=== PATIENT | female | born 1980 | race Caucasian/White ===

== ENCOUNTER → 2017-03-28 | Outpatient (CLI) | payer OTHER ==
[~2017-03-28] MED LIST: ACHD5005 PO; BUTA-234 PO; CEPH-38 PO; DCS100C PO; FRS325T PO; HUM100VI SQ; IBP600T1 PO; INSASP10V SQ; INSU100VTC SQ; KETO-22 PO; KETO10TA77 PO; LEVO500T69 PO; OXC5T PO; OXYC-12 PO; PHEN-566 PO; PREN1TAB39 PO; PREN1TAB71 PO; PRM25T PO
--- NOTE | 2017-03-28 14:57 | Diagnostic Imaging Report ---
Three views of the left ankle. INDICATION: Left ankle pain. FINDINGS: There is no fracture, dislocation, or radiopaque foreign body. Ankle mortise is normal in configuration. IMPRESSION: Unremarkable exam. Dictated by: Dictated on workstation # [id number]
== END ==
LOC: RAD 11:05
PROVIDERS: ATTEND Nurse Practitioner Family
DX: M25.572 Pain in left ankle and joints of left foot (principal)
CPT/HCPCS: 73610

== ENCOUNTER → 2019-07-16 | Outpatient (REF) ==
[~2019-07-16] MED LIST changes: +ATOR20TA66; +CITA10TA7; +METH-313 PO
--- NOTE | 2019-07-16 13:42 | Diagnostic Imaging Report ---
INDICATION: Fall. Injury. Pain. COMPARISON: None. FINDINGS: Three views of the right hand were obtained and show no fractures, dislocations, or other acute bony abnormalities. Joint spaces are well maintained throughout. The soft tissues appear unremarkable. No radiopaque foreign bodies are identified. IMPRESSION: Unremarkable radiographic exam of the right hand. Dictated by: Dictated on workstation # [id number]
== END | disposition home or self-care (01) ==
LOC: OCC 13:27 → MERGE 13:27
PROVIDERS: ATTEND Nurse Practitioner Family
CPT/HCPCS: 73130

== ENCOUNTER 2019-07-25 16:08 | Emergency (ER) | payer OTHER ==
[~2019-07-25] VITALS: Ht 155 cm; Wt 75.0 kg
[~2019-07-25 16:08] MED LIST changes: -ATOR20TA66; -CITA10TA7; -METH-313 PO
[2019-07-25] MEDS ORDERED: ATOR20TA66 (16:15)
[2019-07-25] MEDS ORDERED: CITA10TA7 (16:15)
--- NOTE | 2019-07-25 16:18 | ED Back Pain ---
General Chief Complaint: Back Problems Stated Complaint: UPPER BACK PAIN Nursing Triage Note: Reports back pain that is worse with movement and breathing, also having pain in chest with swallowing Nursing Sepsis Screen: No Definite Risk Source of Information: Patient, Family Exam Limitations: No Limitations History of Present Illness Date Seen by Provider: Jul 25, 2019 Time Seen by Provider: 16:16 Initial Comments To ER with reports of mid upper back pain at the upper level of the scapula that she awakened with this morning. No known injury, she felt fine when she went to bed last night. No fevers or chills or cough or shortness of breath but she has pain with any breathing especially deep breathing and the pain increases with swallowing. Again this is the mid upper back and it seems to radiate through to the anterior chest especially with swallowing. She is able to swallow with just painful. Location: Lumbar Spine Timing/Duration: 1 Week Severity: Moderate Pain/Injury Location: Neck (lower neck) Radiation: Other Associated Symptoms: denies symptoms Allergies and Home Medications Allergies Coded Allergies: Sulfa (Sulfonamide Antibiotics) (Verified Allergy, Unknown, 11/11/14) Patient Home Medication List Home Medication List Reviewed: Yes Review of Systems Constitutional: see HPI EENTM: see HPI Respiratory: no symptoms reported Cardiovascular: no symptoms reported Genitourinary: no symptoms reported Musculoskeletal: no symptoms reported Skin: no symptoms reported Psychiatric/Neurological: No Symptoms Reported Past [id number]-[id number] Hx Patient Social History Alcohol Use: Denies Use Recreational Drug Use: No Smoking Status: Never a Smoker Recent Foreign Travel: No Contact w/Someone Who Travel: No Recent Infectious Disease Expo: No Recent Hopitalizations: No Immunizations Up To Date Tetanus Booster (TDap): Less than 5yrs PED Vaccines UTD: Yes Past Medical History Surgeries: Yes (IUD removal under general anesthesia, wisdom teeth removal) Gallbladder Respiratory: Yes (allergy induced) Asthma Cardiac: Yes High Cholesterol Neurological: Yes (febrile seizure x1 at age 4) Reproductive Disorders: No Female Reproductive Disorders: Denies Sexually Transmitted Disease: No HIV/AIDS: No Genitourinary: No Kidney Stones Gastrointestinal: No Musculoskeletal: No Endocrine: Yes ( induced DM) Diabetes, Insulin dep HEENT: No Loss of Vision: Denies Hearing Impairment: Denies Cancer: No Psychosocial: No Depression Integumentary: No Blood Disorders: No Adverse Reaction/Blood Tranf: No Family Medical History Alcoholism 19 FATHER MATERNAL GRANDMA MATERNAL GRANDPA Arthritis 19 MOTHER BREAST MATERNAL GRANDMA Cardiovascular disease MATERNAL GRANDPA PATERNAL GRANDPA Diabetes mellitus 19 MOTHER (50 YRS) FH: lung cancer 19 MOTHER Headache disorder 19 FATHER Hypercholesterolemia 19 MOTHER Hypertension 19 MOTHER Myocardial infarction MATERNAL GRANDPA PATERNAL GRANDPA Neoplasm PATERNAL GRANDPA Respiratory disorder 19 FATHER Thyroid disease 19 MOTHER No Family History of: AIDS Abdominal aortic aneurysm Bacon's disease Alzheimer's disease Aphasia Asthma Cancer of mouth Cataracts Colon cancer Completed stroke Congenital disease Congenital heart disease Coronary thrombosis Cystic fibrosis Deafness or hearing loss Dementia Drug abuse Dysphasia Fibrocystic disease of breast Gastroenteritis Glaucoma Infertility Kidney disease Not obtainable due to adoption Osteoporosis Parkinson's disease Prostate cancer Psychosocial problem Seizure disorder Severe allergy Tuberculosis Visual disorder Physical Exam Vital Signs Vital Signs - First Documented 07/25/19 16:12 Temp 36.8 Pulse 95 Resp 18 B/P (MAP) 140/89 (106) Pulse Ox 98 Capillary Refill : Less Than 3 Seconds Height, Weight, BMI Height: 5'1.00" Weight: 136lbs. 4.0oz. 61.283293mh; 31.00 BMI Method:Stated General Appearance: No Apparent Distress, WD/WN HEENT: PERRL/EOMI, TMs Normal Cardiovascular: Regular Rate, Rhythm, Normal Peripheral Pulses Respiratory: No Accessory Muscle Use, No Respiratory Distress Gastrointestinal: Normal Bowel Sounds, Non Tender, Soft Extremity: Normal Capillary Refill, Normal Inspection Neurologic/Psychiatric: Alert, Oriented x3 Skin: Normal Color, Warm/Dry Progress/Results/Core Measures Results/Orders My Orders Orders - GREGORIO BARAHONA APRN Antacid Suspension (Mylanta Suspension (07/25/19 16:30) Lidocaine 2% Viscous 15 Ml (Xylocaine Vi (07/25/19 16:30) Ketorolac Injection (Toradol Injection) (07/25/19 16:30) Orphenadrine Injection (Norflex Injectio (07/25/19 16:30) Ct Chest Wo (07/25/19 16:24) Medications Given in ED Current Medications Medications Dose Ordered Sig/Catina Route Start Time Stop Time Status Last Admin Dose Admin Al Hydrox/Mg Hydrox/Simethicone 30 ml ONCE ONCE PO 07/25/19 16:30 07/25/19 16:31 DC 07/25/19 17:00 30 ML Ketorolac Tromethamine 60 mg ONCE ONCE IM 07/25/19 16:30 07/25/19 16:31 DC 07/25/19 17:01 60 MG Lidocaine HCl 10 ml ONCE ONCE PO 07/25/19 16:30 07/25/19 16:31 DC 07/25/19 17:00 10 ML Orphenadrine Citrate 60 mg ONCE ONCE IM 07/25/19 16:30 07/25/19 16:31 DC 07/25/19 17:00 60 MG Vital Signs/I&O 07/25/19 16:12 Temp 36.8 Pulse 95 Resp 18 B/P (MAP) 140/89 (106) Pulse Ox 98 Blood Pressure Mean: 106 POS Departure Impression Primary Impression: Thoracic back pain Qualified Codes: M54.6 - Pain in thoracic spine Disposition: 01 HOME, SELF-CARE Condition: Stable Departure-Patient Inst. Decision time for Depature: 17:20 Referrals: ARYA NAQVI MD (PCP/Family) Primary Care Physician Patient Instructions: Upper Back Pain Add. Discharge Instructions: 1. Anti-inflammatories such as naproxen or ibuprofen and muscle relaxers as directed. Return to ER for any concerns Scripts Methocarbamol (Robaxin-750) 750 Mg Tablet 750 MG PO Q4H PRN for PAIN-MODERATE, #20 TAB Prov: GREGORIO BARAHONA APRN 07/25/19 GREGORIO BARAHONA APRN Jul 25, 2019 16:18 POS
[2019-07-25] MEDS ORDERED: ANTACID SUSP 30 ML UDC (MYLANTA) PO ONE (16:30)
[2019-07-25] MEDS ORDERED: KETOROLAC 60 MG/2 ML VIAL IM ONE (16:30)
[2019-07-25] MEDS ORDERED: ORPHENADRINE 60 MG/2 ML (NORFLEX) AMP IM ONE (16:30)
[2019-07-25] MEDS ORDERED: LIDOCAINE 2% VISCOUS 15 ML UDC PO ONE (16:30)
--- NOTE | 2019-07-25 17:16 | Diagnostic Imaging Report ---
EXAMINATION: CT Chest without contrast. TECHNIQUE: Multiple contiguous axial images were obtained through the chest without the use of intravenous contrast. All CT scans use one or more of the following dose optimizing techniques: automated exposure control, MA and/or KvP adjustment based on a patient size and exam type, or iterative reconstruction. HISTORY: Difficulty breathing. COMPARISON: None available. FINDINGS: The lungs are clear without edema or pneumonia. No pleural effusion or pneumothorax. No suspicious nodules. Heart size is normal. No pericardial effusion. Aorta is normal in caliber. There is no axillary or supraclavicular lymphadenopathy. There is no mediastinal lymphadenopathy. Limited views of the upper abdomen reveal cholecystectomy clips. There are no suspicious osseous lesions. IMPRESSION: 1. No acute abnormality in the chest. Dictated by: Dictated on workstation # [id number]
[2019-07-25] MEDS ORDERED: METH-313 PO ×2 (17:25→17:31)
[2019-07-25 17:27] VITALS: BP 140/89
== END 2019-07-25 17:27 | disposition home or self-care (01) ==
LOC: EDUNIT# 16:08 → ER 16:09
DX: M54.6 Pain in thoracic spine (principal); E11.9 Type 2 diabetes mellitus without complications; J45.909 Unspecified asthma, uncomplicated; F32.9 Major depressive disorder, single episode, unspecified; E78.00 Pure hypercholesterolemia, unspecified; Z87.442 Personal history of urinary calculi; Z88.2 Allergy status to sulfonamides; Z82.49 Family history of ischemic heart disease and other diseases of the circulatory system; Z80.1 Family history of malignant neoplasm of trachea, bronchus and lung
CPT/HCPCS: 71250; 96372

== ENCOUNTER → 2022-07-25 | Outpatient (CLI) | payer BC, OTHER ==
[~2022-07-25] MED LIST changes: +ATOR20TA66; +CITA10TA9; +METH-313 PO
--- NOTE | 2022-07-25 13:18 | Diagnostic Imaging Report ---
INDICATION: Routine screening. COMPARISON: No prior mammograms are available for comparison. This is a baseline study. TECHNIQUE: 2D and 3D bilateral screening mammography was performed with CAD. FINDINGS: Both breasts are heterogeneously dense, limiting the sensitivity of mammography. No mass or malignant-appearing microcalcifications are seen. The axillae are unremarkable. IMPRESSION: No mammographic features suspicious for malignancy are identified. ACR BI-RADS Category 1: Negative. Result letter will be mailed to the patient. Note: At least 10% of breast cancer is not imaged by mammography. Dictated by: Dictated on workstation # [id number]
== END ==
LOC: RAD 10:00
PROVIDERS: ATTEND Nurse Practitioner Family
DX: Z12.31 Encounter for screening mammogram for malignant neoplasm of breast (principal)
CPT/HCPCS: 77063; 77067